=== PATIENT | female | born 2005 | race Caucasian/White ===

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

== ENCOUNTER → 2023-01-31 10:18 | Outpatient (BNVA) | payer BC, MEDICAID, SELFPAY | PROVIDERS: PCP Family Medicine; Referring Provider Family Medicine; Visit Provider Orthopaedic Surgery | DX: M51.36 Other intervertebral disc degeneration, lumbar region (principal) | CPT/HCPCS: 72110 ==

== ENCOUNTER 2023-02-21 13:18 | Outpatient (CLI) | payer BC, MEDICAID, SELFPAY ==
--- NOTE | 2023-02-21 13:30 | MR_ITS ---
WS: [id number] MRI LUMBAR SPINE NONCONTRAST HISTORY: back pain, lower back pain with radiculopathy COMPARISON: 08/11/2020 TECHNIQUE: Sagittal and axial multisequence imaging is submitted. Normal lumbar alignment with no compression fractures or marrow edema. Disc spaces and vertebral body heights are well-preserved. Conus terminates normally at L1-2 disc level. Conus terminates at the mid L2 level which is low dereje l. The conus tapers normally. No thickening of the filum terminale. L1-L2: Normal. L2-L3: Minimal disc bulging. Very mild facet arthritis. L3-L4: Mild ligamentum flavum and facet arthritis. Small central disc protrusion similar to the prior study. There may be very minimal encroachment upon the traversing L4 nerve roots. L4-L5: Mild annular disc bulge with a central shallow disc protrusion and fissure. Bilateral facet bill int arthritis with mild progression since the prior study. Mild encroachment upon the subarticular re cesses. Small amount of fluid in the LEFT facet joint. Mild foraminal narrowing. L5-S1: Normal. MR/MR lumbar spine wo con* [id number] IMPRESSION: 1. Central disc protrusion at L3-4 with mild encroachment upon the traversing L4 nerve roots. Similar to the prior study. 2. Mild progression of facet joint arthritis at L4-5. 3. Mild disc encroachment into the subarticular recesses at L4-5 and a small a mount of fluid in the LEFT facet joint. Mild foraminal narrowing. 4. No acute fracture.
--- NOTE | 2023-02-21 14:15 | MR_ITS ---
WS: [id number] MRI THORACIC SPINE noncontrast. HISTORY: mid back pain COMPARISON: 06/09/2020 TECHNIQUE: Multiplanar sequences are performed in sagittal and axial planes. Normal thoracic alignment. No marrow edema or acute compression fractures. No central stenosis. Sandra l cord signal. There are several Schmorl's nodes defects beginning at T6-T9, T11, T12, L1 and L2. Niya y similar to the prior study. No loss of vertebral body height. T1-2: Normal. T2-3: Normal. T3-4: Normal. T4-5: Normal. T5-6: Normal. T6-7: Normal. T7-8: Very tiny central disc protrusion without cord contact. Very mild foraminal arthritis. T8-9: Shallow RIGHT paracentral disc protrusion. Mild bilateral facet arthritis, RIGHT greater than LEFT. T9-10: Bilateral facet joint arthritis. T10-11: Normal. T11-12: Normal. Paravertebral soft tissues are normal. MR/MR thoracic spin wo con* [id number] IMPRESSION: 1. No high-grade central stenosis. 2. No marrow edema or fracture. 3. Small central disc protrusion at T7-8 and shallow RIGHT paracentral disc pr otrusion at T8-9. 4. Mild facet joint arthritis at T7-8 through T9-10. 5. Schmorl's nodes as described above are stable.
--- NOTE | 2023-02-21 15:00 | MR_ITS ---
WS: [id number] MRI CERVICAL SPINE NONCONTRAST HISTORY: neck pain with radiculopathy COMPARISON: None available. Technique: Multiplanar, multisequence noncontrast imaging of the cervical spine. Normal cervical alignment with no compression fracture or significant disc space narrowing. Remnant s ynchondrosis at the base of the odontoid process is a normal variant. There is no marrow edema to sug gest this is an acute fracture or prevertebral edema. No history of trauma. No Chiari malformation. Signal within the cervical cord is normal. Visualized posterior fossa is unremarkable. Craniocervical junction, C1 and C2 relationship, odontoid process and soft tissues are normal. C2-C3: Normal. C3-C4: Normal. C4-C5: Normal. C5-C6: Normal. C6-C7: Normal. C7-T1: Normal. Paraspinal soft tissue are normal. MR/MR cervical spin wo con* [id number] IMPRESSION: Normal MRI C-spine.
== END 2023-02-21 13:19 | disposition home or self-care (01) ==
PROVIDERS: PCP Family Medicine; Visit Provider Orthopaedic Surgery
DX: M51.24 Other intervertebral disc displacement, thoracic region (principal); G89.29 Other chronic pain; M54.12 Radiculopathy, cervical region; M47.814 Spondylosis without myelopathy or radiculopathy, thoracic region; M51.44 Schmorl's nodes, thoracic region; M51.26 Other intervertebral disc displacement, lumbar region; M47.26 Other spondylosis with radiculopathy, lumbar region
CPT/HCPCS: 72141; 72146; 72148

== ENCOUNTER → 2023-03-28 10:39 | Outpatient (BNVA) | payer BC, MEDICAID, SELFPAY | PROVIDERS: PCP Family Medicine; Referring Provider Orthopaedic Surgery; Visit Provider Internal Medicine Rheumatology | DX: M19.90 Unspecified osteoarthritis, unspecified site (principal); Z79.899 Other long term (current) drug therapy | CPT/HCPCS: 36415; 80076; 82565; 85025; 86140 ==

== ENCOUNTER 2023-04-16 20:04 | Emergency (ER) | payer BC, MEDICAID, SELFPAY ==
[2023-04-16 20:33] VITALS: BP 136/82; PULSE 100; RESP 16; TEMP 36.9; O2SAT 100; BMI 28.8
--- NOTE | 2023-04-16 21:09 | ED_ITS ---
HPI - Female Genitourinary General: Chief complaint: Urogenital-Female Stated complaint: abdomen pain Time Seen by Provider: 04/16/23 21:01 History of Present Illness: 17-year-old female comes in today with some urinary discomfort, pelvic pressure, and blood when she wipes after urinating. Patient appears nontoxic. Patient appears in no acute distress. Patient reports symptoms have been going on for about 2 weeks but after noticing the blood when she wiped tonight she became c oncerned and came in for evaluation. Patient reports a urinary discomfort since starting methotrexate and prednisone for her arthralgia and fibromyalgia. Patient has also been placed on propanolol recently for recurrent migraines. 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 Surgical History History of lymph node excision Infected lymph node on the right side of the neck Family History Father Hypertension Hyperlipidemia Grandmother Hypertension Paternal Hyperlipidemia Paternal Diabetes Paternal Cervical cancer Maternal Grandfather Hypertension Paternal Hyperlipidemia Paternal Stroke Paternal Diabetes Paternal Denies family history of Colon cancer Ovarian cancer DVT (deep venous thrombosis) Breast cancer Pulmonary embolism Uterine cancer Social History Smoking and tobacco status: never smoked Alcohol intake: never Substance/Drug Use: never Female Reproductive History: Spontaneous abortions: No Physical Exam Const: COMMON NORMALS: alert HENMT: COMMON NORMALS: normocephalic HEAD & SCALP: normocephalic Neck/C-Spine: COMMON NORMALS: full ROM Resp: COMMON NORMALS: normal respiratory effort and clear to auscultation bilaterally AUSCULTATION: clear to auscultation bilaterally Cardio: COMMON NORMALS: regular rate and regular rhythm RATE: regular rate RHYTHM: regular rhythm GI: COMMON NORMALS: non-tender : COMMON NORMALS: Yes no CVA tenderness BLADDER/KIDNEY EXAM: Yes no CVA tenderness Back/Pelvis: COMMON NORMALS: no CVA tenderness Extremity: COMMON NORMALS: full ROM Neuro: SENSORIUM/ORIENTATION: Yes alert Skin: COMMON NORMALS: turgor normal GENERAL SKIN EXAM: turgor normal Course Vital Signs: Vital signs: Vital Signs Temperature 98.5 F 04/16/23 20:33 Pulse Rate 100 04/16/23 20:33 Respiratory Rate 16 04/16/23 20:33 Blood Pressure 136/82 04/16/23 20:33 Pulse Oximetry 100 04/16/23 20:33 Oxygen Delivery Me thod Room Air 04/16/23 20:33 MDM - Female Medical Decision Making Patient comes in today with dysuria and pelvic pressure. Patient thinks that she might be developing a urinary tract infection. On exam patient has a soft abdomen, no CVA tenderness, mild pelvic discomfort deep palpation. Differential diagnosis includes but not limited to urinary tract infection, adverse drug effect, acute kidney injury. CBC and CMP were unremarkable. Urinalysis had a large amount of white blood cells and red blood cells in the urine. Patient was written a prescription for antibiotic cephalexin 500 twice a day for 7 days. Patient was recommended to have urine rechecked in 3 to 5 days, return to the ER for worsening symptoms. Patient reported understanding and agreed to plan. Lab Data 04/16/23 21:33 04/16/23 21:33 Laboratory Results WBC 12.3 10^3/uL (4.5-13.0) 04/16/23 21: RBC 4.41 10^6/uL (4.1-5.3) 04/16/23 21: Hgb 10.3 g/dL (11.5-15.3) L 04/16/23 21: Hct 33.3 % (37.0-47.0) L 04/16/23 21: MCV 75.5 fl (81-99) L 04/16/23 21: MCH 23.4 pg (28.0-34.0) L 04/16/23 21: MCHC 30.9 g/dL (30.0-36.0) 04/16/23 21: RDW 15.1 % (12.1-15.1) 04/16/23 21: Plt Count 228 10^3/cmm (130-400) 04/16/23 21: MPV 10.4 fL (7.4-10.4) 04/16/23 21: Neut % (Auto) 68.1 % 04/16/23 21:33 Lymph % (Auto) 22.3 % 04/16/23 21: [place] % (Auto) 7.6 % 04/16/23 21: Eos % (Auto) 1.0 % 04/16/23 21: Baso % (Auto) 0.5 % 04/16/23 21: Neut # (Auto) 8.38 10^3/uL (1.8-8.0) H 04/16/23 21: Lymph # (Auto) 2.7 10^3/uL (1.5-6.5) 04/16/23 21: [place] # (Auto) 0.9 10^3/uL (0.2-0.9) 04/16/23 21: Eos # (Auto) 0.1 10^3/uL (0.0-0.8) 04/16/23 21: Baso # (Auto) 0.1 10^3/uL (0.0-0.1) 04/16/23 21: Nucleated RBC % (auto) 0 % 04/16/23 21: Nucleated RBCs # 0.0 /100WBC 04/16/23 21:33 Sodium 140 mmol/L (136-145) 04/16/23 21: Potassium 3.7 mmol/L (3.5-5.1) 04/16/23 21: Chloride 104 mmol/L (98-107) 04/16/23 21: Carbon Dioxide 25 mmol/L (22-29) 04/16/23 21: Anion Gap 14.7 (5-19) 04/16/23 21: BUN 7 mg/dL (6-20) 04/16/23 21: Creatinine 0.8 mg/dL (0.5-0.9) 04/16/23 21:33 GFR Calculation 92.4 mL/min (90-130) 04/16/23 21: Glucose 111 mg/dL (65-115) 04/16/23 21:33 Calculated Osmolality 289 mOsm/kg (285-295) 04/16/23 21:33 Calcium 9.1 mg/dL (8.5-10.5) 04/16/23 21:33 HCG, Qual Negative (Negative) 04/16/23 21:02 Urine Color Yellow (Yellow) 04/16/23 21:02 Urine Appearance Cloudy (CLEAR) A 04/16/23 21:02 Urine pH 6.5 (5-7) 04/16/23 21:02 Ur Specific [place] 1.020 (1.005-1.030) 04/16/23 21:02 Urine Protein 3+ (Negative) H 04/16/23 21:02 Urine Glucose (UA) Norm (Normal) 04/16/23 21:02 Urine Ketones Negative (Negative) 04/16/23 21:02 Urine Blood 3+ (Negative) H 04/16/23 21:02 Urine Nitrate Negative (Negative) 04/16/23 21:02 Urine Bilirubin 1+ (Negative) H 04/16/23 21:02 Urine Urobilinogen Norm mg/dL (Negative) 04/16/23 21:02 Ur Leukocyte Esterase 2+ (Negative) H 04/16/23 21:02 Urine RBC Too numerous to cnt /hpf (0-2) H 04/16/23 21:02 Urine WBC Too numerous to cnt /hpf (0-5) H 04/16/23 21:02 Ur Squamous Epith Cells 0-4 /hpf (0-5) H 04/16/23 21:02 Amorphous Sediment Not Reportable 04/16/23 21:02 Urine Bacteria 2+ /hpf (NONE) H 04/16/23 21:02 Discharge Plan Discharge Patient Disposition: Home Clinical Impression: Cystitis Condition: Stable Prescriptions: New cephalexin 500 mg capsule 500 mg PO BID 7 Days Qty: 14 0RF No Action etonogestrel-ethinyl estradiol [NuvaRing] 0.12-0.015 mg/24 hr ring 1 vag ring vaginal ONCE Qty: 3 3RF Rx Instructions: Leave in for 3 weeks, then remove for 1 week. propranolol 20 mg tablet 20 mg PO BID Qty: 60 2RF methotrexate sodium 2.5 mg tablet See Rx Instructions PO .Q7days Qty: 30 3RF Rx Instructions: take 6 tabs on same day once a week PO .Q7days; folic acid 1 mg tablet 1 mg PO DAILY Qty: 30 3RF prednisone 20 mg tablet See Rx Instructions PO .COMPLEX PRN (Reason: joint pain flare) Qty: 30 0RF Rx Instructions: take 2 tab daily for [address] Knox PO PRN; Discharge Orders: Discharge ED (Routine); Ordered 04/16/23 Ordered By: Sage Skelton Referrals: Asher Ordonez DO [Primary Care Provider] - Discharge Diet: Usual diet Discharge Activity: Increase activity as tolerated Patient Instructions: Urinary Tract Infection in Women (ED) Activity Restrictions/Additional Instructions: Take antibiotic as directed. Drink plenty of water and fluids with medication. Follow-up with primary care in 3 to 5 days for recheck of urine. Return to ER for worsening symptoms such as high fever greater than 100.4, inability to hold fluids down, or new concerns. Coding Level of Care Code ED Trauma Counsellor for Shyam Daley
[2023-04-16 21:30] LABS: HCG Qualitative Urine. Negative (Negative)
[2023-04-16 21:33] LABS: Add Urine Microscopic? YES; Bilirubin Urine 1+ (Negative); Blood Urine 3+ (Negative); Glucose Urine UA Norm (Normal); Ketones Urine Negative (Negative); Leukocyte Esterase Urine 2+ (Negative); Nitrate Urine Negative (Negative); Protein Urine 3+ (Negative); Urine Appearance Cloudy (CLEAR); Urine Color Yellow (Yellow); Urobilinogen Urine Norm (Negative); pH Urine 6.5 (5-7)
[2023-04-16 21:36] LABS: Bacteria Urine 2+ /hpf; RBC Urine TOO NUMEROUS TO CNT /hpf (0-2); Squamous Epithelial Cell Urine 0-4 /hpf (0-5); WBC Urine TOO NUMEROUS TO CNT /hpf (0-5)
[2023-04-16 21:37] LABS: Add Urine Culture? Yes
[2023-04-16 21:41] LABS: Basophils # 0.1 10^3/uL (0.0-0.1); Basophils % 0.5 %; Eosinophils # 0.1 10^3/uL (0.0-0.8); Hematocrit 33.3 % (37.0-47.0); Hemoglobin 10.3 g/dL (11.5-15.3); Lymphocytes # 2.7 10^3/uL (1.5-6.5); Lymphocytes % 22.3 %; Mean Corpuscular HGB Conc 30.9 g/dL (30.0-36.0); Mean Corpuscular Hemoglobin 23.4 pg (28.0-34.0); Mean Corpuscular Volume 75.5 fl (81-99); Mean Platelet Volume 10.4 fL (7.4-10.4); Monocytes # 0.9 10^3/uL (0.2-0.9); Monocytes % 7.6 %; Neutrophils # 8.38 10^3/uL (1.8-8.0); Neutrophils % 68.1 %; Nucleated Red Blood Cells % 0 %; Platelet Count 228 10^3/cmm (130-400); Red Blood Count 4.41 10^6/uL (4.1-5.3); Red Cell Distribution Width 15.1 % (12.1-15.1); White Blood Count 12.3 10^3/uL (4.5-13.0)
[2023-04-16] MEDS: cephALEXin 500 mg Capsule PO (21:42)
[2023-04-16 21:57] LABS: Anion Gap 14.7 (5-19); Blood Urea Nitrogen 7 mg/dL (6-20); Calcium 9.1 mg/dL (8.5-10.5); Carbon Dioxide 25 mmol/L (22-29); Chloride 104 mmol/L (98-107); Creatinine Clr Calc Pharmacy 130.0145; Glomerular Filtration Rate 92.4 mL/min (90-130); Glucose 111 mg/dL (65-115); Osmolality Calculated 289 mOsm/kg (285-295); Potassium 3.7 mmol/L (3.5-5.1); Sodium 140 mmol/L (136-145)
== END 2023-04-16 22:22 | disposition home or self-care (01) ==
PROVIDERS: Emergency Provider Nurse Practitioner Family; PCP Family Medicine
DX: N30.90 Cystitis, unspecified without hematuria (principal)
CPT/HCPCS: 36415; 80048; 81001; 81025; 85025; 87077; 87086; 87186; 99283

== ENCOUNTER 2023-04-24 23:38 | Emergency (ER) | payer BC, MEDICAID, SELFPAY ==
[2023-04-24 23:43] VITALS: BP 132/87; PULSE 89; RESP 18; TEMP 36.7; O2SAT 98; BMI 28.8
[2023-04-24 23:47] VITALS: BP 152/87; PULSE 90; RESP 16
--- NOTE | 2023-04-25 00:25 | W.ED.FEMALGU ---
HPI - Female Genitourinary General: Chief complaint: Urogenital-Female Stated complaint: vaginal pain Time Seen by Provider: 04/25/23 00:02 History of Present Illness: 17yo female presents with friend for evaluation of redness, swelling, tenderness, burning, and itching to the vaginal area that started 4 days ago. Patient reports she was seen in this ER a little over a week ago, diagnosed with a urinary tract infection. States that she thought it may be related to the antibiotic, so she stopped taking it. Patient reports that she did try using Monistat today, but it caused increased burning. Patient denies rash, lesions, possibility of , fever, chills, body aches, any other concerns at this time. 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 Surgical History History of lymph node excision Infected lymph node on the right side of the neck Family History Father Hypertension Hyperlipidemia Grandmother Hypertension Paternal Hyperlipidemia Paternal Diabetes Paternal Cervical cancer Maternal Grandfather Hypertension Paternal Hyperlipidemia Paternal Stroke Paternal Diabetes Paternal Denies family history of Colon cancer Ovarian cancer DVT (deep venous thrombosis) Breast cancer Pulmonary embolism Uterine cancer Social History Smoking and tobacco status: never smoked Alcohol intake: never Substance/Drug Use: never Female Reproductive History: Spontaneous abortions: No Physical Exam Const: COMMON NORMALS: no acute distress, patient oriented x3, healthy appearing, alert and well nourished GENERAL APPEARANCE: cooperative ORIENTATION/CONSCIOUSNESS: Yes awake HENMT: COMMON NORMALS: normocephalic and atraumatic HEAD & SCALP: normocephalic and atraumatic Eye: GENERAL EYE: appearance normal, both eyes and all related structures Neck/C-Spine: COMMON NORMALS: full ROM Chest: CHEST: Yes Symmetrical chest wall rise Resp: COMMON NORMALS: normal respiratory effort EFFORT & INSPECTION: No respiratory distress Cardio: COMMON NORMALS: regular rate RATE: regular rate : EXTERNAL FEMALE EXAM: Yes normal appearance of the urethra, No Abnormal introitus, Yes erythema (scant), No externally tender and No external swelling Neuro: COMMON NORMALS: patient oriented x3 SENSORIUM/ORIENTATION: Yes alert Psych: COMMON NORMALS: cooperative Course Vital Signs: Vital signs: Vital Signs Temperature 98.0 F 04/24/23 23:43 Pulse Rate 90 04/24/23 23:47 Respiratory Rate 16 04/24/23 23:47 Blood Pressure 152/87 04/24/23 23:47 Pulse Oximetry 98 04/24/23 23:43 Oxygen Delivery Me thod Room Air 04/24/23 23:43 MDM - Female Medical Decision Making 17yo female here with concerns of redness, swelling, tenderness, burning, itching to the vaginal area that started 4 days ago. Patient was seen at this ER on 04/16/2023 where she was diagnosed with a urinary tract infection and diagnosed cephalexin. She reports that she stopped taking the medication when she started having the symptoms. Reports that she tried Monistat today, but had increased burning to the area. Patient denies fever, chills, body aches, rash/genital lesions, continued dysuria, possibility of . Patient is nontoxic in appearance. Vital signs are stable. Differential diagnoses include UTI, yeast infection, genital lesions UA with 2+ leukocytes and 5-10 white blood cells, trace bacteria noted. Discussed findings with patient. Advised that we would begin nitrofurantoin given that the patient did stop her previously prescribed antibiotics prior to completing the course. Diflucan was also prescribed. Encourage patient to increase her fluid intake and continue to monitor symptoms. Advised to follow-up with primary care, call later this week with an update of symptoms and to discuss a recheck. Recommend return to the emergency department if any rapid worsening symptoms, onset of fever/chills associated with worsening, and as needed Lab Data I reviewed the patient's lab results. Laboratory Results Urine Color Yellow (Yellow) 04/25/23 00:21 Urine Appearance Sl hazy (CLEAR) A 04/25/23 00:21 Urine pH 5 (5-7) 04/25/23 00:21 Ur Specific [place] 1.025 (1.005-1.030) 04/25/23 00:21 Urine Protein Neg (Negative) 04/25/23 00:21 Urine Glucose (UA) Norm (Normal) 04/25/23 00:21 Urine Ketones Negative (Negative) 04/25/23 00:21 Urine Blood Neg (Negative) 04/25/23 00:21 Urine Nitrate Negative (Negative) 04/25/23 00:21 Urine Bilirubin Neg (Negative) 04/25/23 00:21 Urine Urobilinogen Norm mg/dL (Negative) 04/25/23 00:21 Ur Leukocyte Esterase 2+ (Negative) H 04/25/23 00:21 Urine RBC 0-4 /hpf (0-2) H 04/25/23 00:21 Urine WBC 5-10 /hpf (0-5) H 04/25/23 00:21 Ur Squamous Epith Cells 5-10 /hpf (0-5) H 04/25/23 00:21 Amorphous Sediment Not Reportable 04/25/23 00:21 Urine Bacteria Trace /hpf (NONE) 04/25/23 00:21 Discharge Plan Discharge Patient Disposition: Home Clinical Impression: Urinary tract infection, Genital pruritus Condition: Stable Prescriptions: New Macrobid 100 mg capsule 100 mg PO BID 5 Days Qty: 10 0RF Rx Instructions: must administer with a meal/food Diflucan 150 mg tablet 150 mg PO DAILY Qty: 1 0RF Rx Instructions: administer on day 3 of antibiotics No Action etonogestrel-ethinyl estradiol [NuvaRing] 0.12-0.015 mg/24 hr ring 1 vag ring vaginal ONCE Qty: 3 3RF Rx Instructions: Leave in for 3 weeks, then remove for 1 week. propranolol 20 mg tablet 20 mg PO BID Qty: 60 2RF methotrexate sodium 2.5 mg tablet See Rx Instructions PO .Q7days Qty: 30 3RF Rx Instructions: take 6 tabs on same day once a week PO .Q7days; folic acid 1 mg tablet 1 mg PO DAILY Qty: 30 3RF prednisone 20 mg tablet See Rx Instructions PO .COMPLEX PRN (Reason: joint pain flare) Qty: 30 0RF Rx Instructions: take 2 tab daily for [address] Lisette FRENCH PRN; Discharge Orders: Discharge ED (Routine); Ordered 04/25/23 Ordered By: Ezra Busch Referrals: Asher Ordonez DO [Primary Care Provider] - Discharge Diet: Usual diet Discharge Activity: Resume usual activity Patient Instructions: Urinary Tract Infection in Women (ED) Activity Restrictions/Additional Instructions: Increase your fluid intake and continue to monitor symptoms Follow-up with your doctor, call later this week with an update of symptoms and to discuss or recheck Return to the emergency department if any rapid worsening symptoms and as needed Coding Level of Care Code ED Soil Science Professor for Shyam Daley
[2023-04-25 00:37] LABS: Urine Color Yellow (Yellow)
[2023-04-25 00:38] LABS: Add Urine Culture? No; Add Urine Microscopic? YES; Bacteria Urine TRACE /hpf; Bilirubin Urine Neg (Negative); Blood Urine Neg (Negative); Glucose Urine UA Norm (Normal); Ketones Urine Negative (Negative); Leukocyte Esterase Urine 2+ (Negative); Nitrate Urine Negative (Negative); Protein Urine Neg (Negative); RBC Urine 0-4 /hpf (0-2); Specific Gravity, Urine 1.025 (1.005-1.030); Urine Appearance SL Hazy (CLEAR); Urobilinogen Urine Norm (Negative); pH Urine 5 (5-7)
[2023-04-25] MEDS: nitrofurantoin SR (BID) 100 mg Capsule PO (01:11)
[2023-04-25 01:26] VITALS: PULSE 72; RESP 16; O2SAT 99
== END 2023-04-25 01:26 | disposition home or self-care (01) ==
PROVIDERS: Nurse Practitioner; Emergency Provider Internal Medicine; PCP Family Medicine
DX: L29.2 Pruritus vulvae (principal); N39.0 Urinary tract infection, site not specified
CPT/HCPCS: 81001; 99283

== ENCOUNTER 2024-11-29 17:47 | Emergency (ER) | payer SELFPAY ==
[2024-11-29 18:08] VITALS: BP 120/80; PULSE 101; RESP 18; TEMP 37.1; O2SAT 100; BMI 32.5
--- NOTE | 2024-11-29 19:12 | W.ED.SKABFB ---
HPI - Skin/Abscess/Foreign Bdy General: Chief complaint: Skin/Abscess/Foreign Body Stated complaint: discoloration around breasts Time Seen by Provider: 11/29/24 18:14 History of Present Illness: Marcia Boothe is a 19-year-old female that presents to the emergency department with reports of breast discoloration. Patient reports that last night while cleaning out a drawer she noted purpleish skin tone to her breast It was under her clothing, under her bra. She googled the symptoms along with her other symptoms she has had for the last 3 months, epigastric pain, nausea vomiting and is now concerned that she may have pancreatic cancer. She does have a familial history breast cancer. Does not do breast exams. Has not had any issues with her breast. She does not feel that her breasts have changed in any particular manner. Related Data Previous Rx's ?Medication ?Instructions ?Recorded ondansetron 4 mg disintegrating 4 mg PO Q8H PRN nausea and 09/10/24 tablet vomiting #14 tabs Allergies Allergy/AdvReac Type Severity Reaction Status Date / Time tioconazole (From Monistat 1 Allergy ALGY-Rash Verified 09/10/24 15:12 (tioconazole)) duloxetine AdvReac Intermediate nausea Verified 09/10/24 15:12 Review of Systems General: Reports: 10 or more systems reviewed and unremarkable except in HPI and below Narrative: She reports breast discoloration and feeling of fullness. Denies tenderness. Pain in the epigastrium. 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 Osorio Surgical History History of lymph node excision Infected lymph node on the right side of the neck Family History Father Hypertension Hyperlipidemia Grandmother Hypertension Paternal Hyperlipidemia Paternal Diabetes Paternal Cervical cancer Maternal Grandfather Hypertension Paternal Hyperlipidemia Paternal Stroke Paternal Diabetes Paternal Denies family history of Colon cancer Ovarian cancer DVT (deep venous thrombosis) Breast cancer Pulmonary embolism Uterine cancer Social History (Updated 08/08/23 @ 10:54 by Bindu Maldonado LPN) Smoking and tobacco/nicotine status: never used tobacco/nicotine Female Reproductive History: Spontaneous abortions: No Physical Exam Const: COMMON NORMALS: no acute distress, patient oriented x3 and alert GENERAL APPEARANCE: cooperative ORIENTATION/CONSCIOUSNESS: Yes awake, Yes oriented to person, Yes oriented to place and Yes oriented to time Chest: COMMONS NORMALS: normal inspection of the chest Breast/axilla inspection: Yes no chest deformity, asymmetry, normal contours, no nodules, masses, tenderness Resp: COMMON NORMALS: normal respiratory effort, No retractions, No use of accessory muscles and clear to auscultation bilaterally EFFORT & INSPECTION: Yes able to speak in complete sentences and Yes symmetric chest movement AUSCULTATION: clear to auscultation bilaterally Cardio: COMMON NORMALS: regular rate, regular rhythm and Peripheral pulses 2+ throughout RATE: regular rate RHYTHM: regular rhythm PERIPHERAL PULSES: Peripheral pulses 2+ throughout GI: COMMON NORMALS: Normal to inspection, nondistended, normoactive bowel sounds present, Soft to palpation, non-tender and No hepatosplenomegaly present INSPECTION: Yes normal to inspection AUSCULTATION: Yes normoactive bowel sounds PALPATION: Yes Soft to palpation and Yes No hepatosplenomegaly present RECTAL EXAM: deferred Neuro: COMMON NORMALS: patient oriented x3 SENSORIUM/ORIENTATION: Yes alert, Yes oriented to person, Yes oriented to place and Yes oriented to time CRANIAL NERVES: Yes CN normal except as noted Psych: COMMON NORMALS: mental status grossly normal, Normal thought process present, cooperative, activity/motor behavior normal, denies homicidal ideation and denies suicidal ideation THOUGHT PROCESS: Normal thought process present Skin: COMMON NORMALS: no rashes or lesions noted, no wounds and turgor normal GENERAL SKIN EXAM: no rashes or lesions noted and turgor normal Course Vital Signs: Vital signs: Vital Signs Temperature 98.8 F 11/29/24 18:08 Pulse Rate 101 H 11/29/24 18:08 Respiratory Rate 18 11/29/24 18:08 Blood Pressure 120/80 11/29/24 18:08 Pulse Oximetry 100 11/29/24 18:08 Oxygen Delivery Me thod Room Air 11/29/24 18:08 MDM - Skin/Abscess/Foreign Bdy Medicial Decision Making Patient evaluated in the emergency department today for complaints of intermittent epigastric pain for the last 3 months along with nausea vomiting poor appetite. The initial reason for visit today was changes to her breast. [place] like she had a rash yesterday. No rash visualized today Patient has not had a menstrual cycle since February 2024 but she reports that this is not uncommon for her since she has PCOS. She is sexually active and does not use any means of prevention. She had a positive hCG qualitative and her quantitative was almost 24,000. Her CBC reveals a mild anemia but no leukocytosis. Her chemistry panel was unremarkable. Her lipase was normal. I talked with patient about diagnostic findings. I am reaching out to special education case manager to assist with primary care and SENIOR PAYROLL SPECIALIST referrals. Patient should return to the emergency department if she develops abdominal pain, vaginal bleeding or any other concern that may be worsening. Patient is agreeable and all questions answered Lab Data 11/29/24 19:40 11/29/24 19:40 Laboratory Results WBC 10.74 10^3/uL (3.29-11.43) 11/29/24 19:40 RBC 4.50 10^6/uL (3.85-5.65) 11/29/24 19:40 Hgb 10.10 g/dL (11.27-16.99) L 11/29/24 19:40 Hct 32.6 % (36-47) L 11/29/24 19:40 MCV 72.4 fl (85-98) L 11/29/24 19:40 MCH 22.4 pg (27-33) L 11/29/24 19:40 MCHC 31.0 g/dL (30-55) 11/29/24 19:40 RDW 17.6 % (12.1-15.1) H 11/29/24 19:40 Plt Count 230 10^3/cmm (157-399) 11/29/24 19:40 MPV 11.7 fL (7.4-10.4) H 11/29/24 19:40 Neut % (Auto) 73.6 % 11/29/24 19:40 Lymph % (Auto) 17.5 % 11/29/24 19:40 [place] % (Auto) 7.3 % 11/29/24 19:40 Eos % (Auto) 0.6 % 11/29/24 19:40 Baso % (Auto) 0.3 % 11/29/24 19:40 Neut # (Auto) 7.92 10^3/uL (1.8-7.7) H 11/29/24 19:40 Lymph # (Auto) 1.9 10^3/uL (0.8-4.8) 11/29/24 19:40 [place] # (Auto) 0.8 10^3/uL (0.2-0.9) 11/29/24 19:40 Eos # (Auto) 0.1 10^3/uL (0.0-0.8) 11/29/24 19:40 Baso # (Auto) 0.0 10^3/uL (0.0-0.1) 11/29/24 19:40 Nucleated RBC % (auto) 0 % 11/29/24 19:40 Nucleated RBCs # 0.0 /100WBC 11/29/24 19:40 Sodium 136 mmol/L (136-145) 11/29/24 19:40 Potassium 3.6 mmol/L (3.5-5.1) 11/29/24 19:40 Chloride 103 mmol/L (98-107) 11/29/24 19:40 Carbon Dioxide 23 mmol/L (22-29) 11/29/24 19:40 Anion Gap 13.6 (5-19) 11/29/24 19:40 BUN 6 mg/dL (6-20) 11/29/24 19:40 Creatinine 0.5 mg/dL (0.5-0.9) 11/29/24 19:40 GFR Calculation 155.7 mL/min (90-130) H 11/29/24 19:40 Glucose 80 mg/dL (65-115) 11/29/24 19:40 Calculated Osmolality 279 mOsm/kg (285-295) L 11/29/24 19:40 Calcium 8.8 mg/dL (8.5-10.5) 11/29/24 19:40 Total Bilirubin 0.2 mg/dL (0.15-1.2) 11/29/24 19:40 AST 16 U/L (0-32) 11/29/24 19:40 ALT 17 U/L (0-33) 11/29/24 19:40 Alkaline Phosphatase 72 U/L (35-105) 11/29/24 19:40 Total Protein 6.1 g/dL (6.6-8.7) L 11/29/24 19:40 Albumin 3.8 g/dL (3.5-5.2) 11/29/24 19:40 Globulin 2.3 g/dL (1.3-4.6) 11/29/24 19:40 Lipase 32 U/L (13-60) 11/29/24 19:40 HCG, Qual Positive (Negative) H 11/29/24 19:08 Ser , Semi-Qnt 39938.00 mIU/mL 11/29/24 19:40 Urine Color Yellow (Yellow) 11/29/24 19:08 Urine Appearance Clear (CLEAR) 11/29/24 19:08 Urine pH 6.0 (5-7) 11/29/24 19:08 Ur Specific [place] 1.010 (1.005-1.030) 11/29/24 19:08 Urine Protein Negative (Negative) 11/29/24 19:08 Urine Glucose (UA) Negative (Normal) 11/29/24 19:08 Urine Ketones Negative (Negative) 11/29/24 19:08 Urine Blood Negative (Negative) 11/29/24 19:08 Urine Nitrate Negative (Negative) 11/29/24 19:08 Urine Bilirubin Negative (Negative) 11/29/24 19:08 Urine Urobilinogen 1.0 mg/dL (Negative) 11/29/24 19:08 Ur Leukocyte Esterase Negative (Negative) 11/29/24 19:08 Urine RBC 0-2 /hpf (0-2) 11/29/24 19:08 Urine WBC 0-5 /hpf (0-5) 11/29/24 19:08 Ur Squamous Epith Cells 0-5 /hpf (0-5) 11/29/24 19:08 Amorphous Sediment Not Reportable 11/29/24 19:08 Urine Bacteria None seen /hpf (NONE) 11/29/24 19:08 Hyaline Casts 0.40 /lpf 11/29/24 19:08 No radiology studies performed this visit Discharge Plan Discharge Patient Disposition: Home Clinical Impression: , Breast tenderness in female Condition: Stable Prescriptions: No Action ondansetron 4 mg tablet,disintegrating 4 mg PO Q8H PRN (Reason: nausea and vomiting) Qty: 14 0RF Discharge Orders: Discharge ED (Routine); Ordered 11/29/24 Ordered By: Vane Palacios Referrals: Asher Ordonez DO [Primary Care Provider] - Discharge Diet: Advance as tolerated Discharge Activity: Resume usual activity Patient Instructions: (ED), Pain Management Activity Restrictions/Additional Instructions: I have asked special education case manager to assist you in setting up primary care as well as SENIOR PAYROLL SPECIALIST. Please expect their call this week. Please return to the emergency department for new, concerning, or worsening symptoms Print Language: Burkinan Coding Level of Care Code ED Anode Crew Supervisor for Shyam Daley
[2024-11-29 19:14] LABS: HCG Qualitative Urine. Positive (Negative)
[2024-11-29 19:15] LABS: Bilirubin Urine Negative (Negative); Blood Urine Negative (Negative); Glucose Urine UA Negative (Normal); Ketones Urine Negative (Negative); Leukocyte Esterase Urine Negative (Negative); Nitrate Urine Negative (Negative); Protein Urine Negative (Negative); Urine Appearance Clear (CLEAR); Urine Color Yellow (Yellow)
[2024-11-29 19:20] LABS: Add Urine Microscopic? YES; Bacteria Urine None Seen /hpf; RBC Urine 0-2 /hpf (0-2); Squamous Epithelial Cell Urine 0-5 /hpf (0-5); WBC Urine 0-5 /hpf (0-5)
[2024-11-29 20:04] LABS: Basophils % 0.3 %; Eosinophils # 0.1 10^3/uL (0.0-0.8); Eosinophils % 0.6 %; Hematocrit 32.6 % (36-47); Lymphocytes # 1.9 10^3/uL (0.8-4.8); Lymphocytes % 17.5 %; Mean Corpuscular Hemoglobin 22.4 pg (27-33); Mean Corpuscular Volume 72.4 fl (85-98); Mean Platelet Volume 11.7 fL (7.4-10.4); Monocytes # 0.8 10^3/uL (0.2-0.9); Monocytes % 7.3 %; Neutrophils # 7.92 10^3/uL (1.8-7.7); Neutrophils % 73.6 %; Nucleated Red Blood Cells % 0 %; Platelet Count 230 10^3/cmm (157-399); Red Cell Distribution Width 17.6 % (12.1-15.1); White Blood Count 10.74 10^3/uL (3.29-11.43)
[2024-11-29 20:14] LABS: Alanine Aminotransferase 17 U/L (0-33); Albumin Level 3.8 g/dL (3.5-5.2); Alkaline Phosphatase 72 U/L (35-105); Anion Gap 13.6 (5-19); Aspartate Amino Transferase 16 U/L (0-32); Blood Urea Nitrogen 6 mg/dL (6-20); Calcium 8.8 mg/dL (8.5-10.5); Carbon Dioxide 23 mmol/L (22-29); Chloride 103 mmol/L (98-107); Creatinine Clr Calc Pharmacy 216.8195; Globulin 2.3 g/dL (1.3-4.6); Glomerular Filtration Rate 155.7 mL/min (90-130); Glucose 80 mg/dL (65-115); Lipase 32 U/L (13-60); Osmolality Calculated 279 mOsm/kg (285-295); Potassium 3.6 mmol/L (3.5-5.1); Sodium 136 mmol/L (136-145); Total Bilirubin 0.2 mg/dL (0.15-1.2); Total Protein 6.1 g/dL (6.6-8.7)
[2024-11-29 20:43] VITALS: BP 107/56; PULSE 83; O2SAT 96
--- NOTE | 2024-12-02 07:46 | DCPLANNER ---
messaged [facility] f/u
== END 2024-11-29 20:48 | disposition home or self-care (01) ==
PROVIDERS: Emergency Provider Nurse Practitioner; PCP Family Medicine
DX: Z34.91 Encounter for supervision of normal pregnancy, unspecified, first trimester (principal); N64.4 Mastodynia
CPT/HCPCS: 36415; 80053; 81001; 81025; 83690; 84702; 85025; 99283

== ENCOUNTER → 2024-12-10 11:02 | Outpatient (BNVA) | payer BC, MEDICAID, SELFPAY | PROVIDERS: PCP Family Medicine; Visit Provider Nurse Practitioner Women's Health | DX: Z34.90 Encounter for supervision of normal pregnancy, unspecified, unspecified trimester (principal); N91.2 Amenorrhea, unspecified | CPT/HCPCS: 76815; 80307; 81025; 83036; 84702; 85025; 86592; 86762; 86803; 86850; 86900; 87086; 87340; 87806 ==

== ENCOUNTER → 2024-12-16 09:24 | Outpatient (BNVA) | payer BC, MEDICAID, SELFPAY | PROVIDERS: PCP Family Medicine; Visit Provider Nurse Practitioner Women's Health | DX: O26.892 Other specified pregnancy related conditions, second trimester (principal); Z3A.22 22 weeks gestation of pregnancy | CPT/HCPCS: 76805 ==

== ENCOUNTER → 2025-01-07 09:55 | Outpatient (BNVA) | payer BC, MEDICAID, SELFPAY | PROVIDERS: PCP Family Medicine; Visit Provider Nurse Practitioner Women's Health | DX: Z34.90 Encounter for supervision of normal pregnancy, unspecified, unspecified trimester (principal) | CPT/HCPCS: 82607; 82728; 82746; 82950; 83540; 84315; 84443; 87491; 87591; 87661; 88175 ==

== ENCOUNTER 2025-02-10 12:15 | Outpatient (CLI) | payer BC, MEDICAID, SELFPAY ==
[2025-02-10 12:25] VITALS: BP 139/85; PULSE 95
[2025-02-10 12:27] VITALS: RESP 16; TEMP 36.9; BMI 34.8
[2025-02-10 12:28] VITALS: RESP 16; TEMP 36.9
[2025-02-10 12:40] VITALS: BP 115/71; PULSE 83
[2025-02-10 12:55] VITALS: BP 118/70; PULSE 83
== END 2025-02-10 13:08 | disposition home or self-care (01) ==
LOC: OPOB 12:19 → OBGYN 12:19
PROVIDERS: PCP Family Medicine; Visit Provider Obstetrics & Gynecology
DX: O36.8190 Decreased fetal movements, unspecified trimester, not applicable or unspecified (principal); Z3A.00 Weeks of gestation of pregnancy not specified
CPT/HCPCS: 59025; 99211

== ENCOUNTER → 2025-02-12 13:17 | Outpatient (BNVA) | payer BC, MEDICAID, SELFPAY | PROVIDERS: PCP Family Medicine; Visit Provider Nurse Practitioner Women's Health | DX: Z34.90 Encounter for supervision of normal pregnancy, unspecified, unspecified trimester (principal); Z34.02 Encounter for supervision of normal first pregnancy, second trimester | CPT/HCPCS: 84315; 85025 ==

== ENCOUNTER → 2025-03-04 08:00 | Outpatient (BNVA) | payer BC, MEDICAID, SELFPAY | PROVIDERS: PCP Family Medicine; Visit Provider Nurse Practitioner Women's Health | DX: Z34.02 Encounter for supervision of normal first pregnancy, second trimester (principal) | CPT/HCPCS: 84315 ==

== ENCOUNTER → 2025-03-18 07:54 | Outpatient (BNVA) | payer BC, MEDICAID, SELFPAY | PROVIDERS: PCP Family Medicine; Visit Provider Nurse Practitioner Women's Health | DX: Z34.00 Encounter for supervision of normal first pregnancy, unspecified trimester (principal) | CPT/HCPCS: 84315 ==

== ENCOUNTER 2025-03-22 02:00 | Outpatient (CLI) | payer BC, MEDICAID, SELFPAY ==
[2025-03-22 02:13] VITALS: BMI 36.6
[2025-03-22 02:30] VITALS: BP 104/56; PULSE 78
[2025-03-22 02:45] VITALS: BP 97/54; PULSE 78
[2025-03-22 03:00] VITALS: BP 99/56; PULSE 84
[2025-03-22 03:15] VITALS: BP 97/52; PULSE 79
[2025-03-22 03:30] VITALS: BP 97/52; PULSE 87; RESP 15; TEMP 35.8; O2SAT 97
[2025-03-22 03:31] VITALS: PULSE 85; O2SAT 97
== END 2025-03-22 03:33 | disposition home or self-care (01) ==
LOC: OPOB 02:07 → OBGYN 02:07
PROVIDERS: PCP Family Medicine; Visit Provider Obstetrics & Gynecology
DX: O26.899 Other specified pregnancy related conditions, unspecified trimester (principal); Z3A.00 Weeks of gestation of pregnancy not specified; R52 Pain, unspecified
CPT/HCPCS: 59025; 99211; J9999

== ENCOUNTER → 2025-03-31 07:56 | Outpatient (BNVA) | payer BC, MEDICAID, SELFPAY | PROVIDERS: PCP Family Medicine; Visit Provider Obstetrics & Gynecology | DX: Z34.00 Encounter for supervision of normal first pregnancy, unspecified trimester (principal); Z34.02 Encounter for supervision of normal first pregnancy, second trimester | CPT/HCPCS: 84315; 87081 ==

== ENCOUNTER 2025-04-01 21:10 | Outpatient (CLI) | payer BC, MEDICAID, SELFPAY ==
[2025-04-01] VITALS (7 sets, daily range): BP systolic 107–127; BP diastolic 58–78; PULSE 97–122; BMI 36.8
== END 2025-04-01 22:46 | disposition home or self-care (01) ==
LOC: OPOB 21:14 → OBGYN 21:16
PROVIDERS: PCP Family Medicine; Visit Provider Obstetrics & Gynecology
DX: O26.899 Other specified pregnancy related conditions, unspecified trimester (principal); Z3A.00 Weeks of gestation of pregnancy not specified; R10.9 Unspecified abdominal pain
CPT/HCPCS: 59025; 99211

== ENCOUNTER → 2025-04-09 09:09 | Outpatient (BNVA) | payer BC, MEDICAID, SELFPAY | PROVIDERS: PCP Family Medicine; Visit Provider Obstetrics & Gynecology | DX: Z34.90 Encounter for supervision of normal pregnancy, unspecified, unspecified trimester (principal); Z3A.37 37 weeks gestation of pregnancy | CPT/HCPCS: 84315 ==

== ENCOUNTER → 2025-04-14 08:12 | Outpatient (BNVA) | payer BC, MEDICAID, SELFPAY | PROVIDERS: PCP Family Medicine; Visit Provider Obstetrics & Gynecology | DX: Z34.90 Encounter for supervision of normal pregnancy, unspecified, unspecified trimester (principal) | CPT/HCPCS: 84315 ==

== ENCOUNTER 2025-04-16 11:40 | Outpatient (CLI) | payer BC, MEDICAID, SELFPAY ==
[2025-04-16] VITALS (11 sets, daily range): BP systolic 112–124; BP diastolic 58–78; PULSE 78–99; RESP 18; BMI 36.7
== END 2025-04-16 15:00 | disposition home or self-care (01) ==
LOC: OPOB 11:44 → OBGYN 11:45
PROVIDERS: PCP Family Medicine; Visit Provider Obstetrics & Gynecology
DX: O26.899 Other specified pregnancy related conditions, unspecified trimester (principal); Z3A.00 Weeks of gestation of pregnancy not specified; R10.9 Unspecified abdominal pain
CPT/HCPCS: 59025; 99211

== ENCOUNTER 2025-04-17 20:26 | Outpatient (CLI) | payer BC, MEDICAID, SELFPAY ==
[2025-04-17 20:36] VITALS: BMI 36.8
[2025-04-17 20:39] VITALS: BP 120/80; PULSE 95
[2025-04-17 20:47] VITALS: BP 105/63; PULSE 105
[2025-04-17 21:03] VITALS: BP 107/69; PULSE 94
[2025-04-17 21:40] LABS: Nitrazine Paper, PH Negative
== END 2025-04-17 21:10 | disposition home or self-care (01) ==
LOC: OPOB 20:27 → OBGYN 20:27
PROVIDERS: PCP Family Medicine; Visit Provider Obstetrics & Gynecology
DX: O26.899 Other specified pregnancy related conditions, unspecified trimester (principal); Z3A.00 Weeks of gestation of pregnancy not specified; R10.9 Unspecified abdominal pain
CPT/HCPCS: 59025; 83986; 99211

== ENCOUNTER 2025-04-18 15:48 | Outpatient (CLI) | payer BC, MEDICAID, SELFPAY ==
[2025-04-18] VITALS (8 sets, daily range): BP systolic 129–132; BP diastolic 73–79; PULSE 92–107; RESP 17; O2SAT 97; BMI 36.8
== END 2025-04-18 16:32 | disposition home or self-care (01) ==
LOC: OPOB 15:49 → OBGYN 15:50
PROVIDERS: PCP Family Medicine; Visit Provider Obstetrics & Gynecology
DX: O26.899 Other specified pregnancy related conditions, unspecified trimester (principal); Z3A.00 Weeks of gestation of pregnancy not specified; R42 Dizziness and giddiness; R51.9 Headache, unspecified; R11.0 Nausea; H53.8 Other visual disturbances
CPT/HCPCS: 59025; 99211; J9999

== ENCOUNTER 2025-04-20 18:16 | Outpatient (CLI) | payer BC, MEDICAID, SELFPAY ==
[2025-04-20] VITALS (7 sets, daily range): BP systolic 108–131; BP diastolic 69–84; PULSE 94–99; RESP 17; O2SAT 99; BMI 36.9
== END 2025-04-20 19:46 | disposition home or self-care (01) ==
LOC: OPOB 18:17 → OBGYN 18:18
PROVIDERS: PCP Family Medicine; Visit Provider Obstetrics & Gynecology
DX: O26.899 Other specified pregnancy related conditions, unspecified trimester (principal); Z3A.00 Weeks of gestation of pregnancy not specified; R10.9 Unspecified abdominal pain
CPT/HCPCS: 59025; 99211

== ENCOUNTER → 2025-04-28 08:41 | Outpatient (BNVA) | payer BC, MEDICAID, SELFPAY | PROVIDERS: PCP Family Medicine; Visit Provider Obstetrics & Gynecology | DX: O26.893 Other specified pregnancy related conditions, third trimester (principal); Z3A.40 40 weeks gestation of pregnancy | CPT/HCPCS: 76819; 84315 ==

== ENCOUNTER 2025-04-29 04:25 | Inpatient (IN) | payer BC, MEDICAID, SELFPAY ==
[2025-04-28 20:02] VITALS: BP 111/69; PULSE 104
[2025-04-28 20:05] VITALS: RESP 18; BMI 37.7
[2025-04-28 20:57] VITALS: RESP 18
--- NOTE | 2025-04-28 21:34 | PM.OPHPUD ---
Labor & Delivery H&P Update Date of Procedure: April 28, 2025 Date H&P Performed: 04/28/25 Changes to previous documentation: Patient having regular contractions Admission Diagnosis: of 40+ weeks in labor
--- NOTE | 2025-04-28 21:37 | PM.OBGYHP ---
Providers/Chief Complaint Admitting Physician: Nanda Primary ELECTRONICS PARTS SALES REPRESENTATIVE: Nanda Primary Care Provider: Asher Ordonez DO Chief Complaint: Contractions HPI ELECTRONICS PARTS SALES REPRESENTATIVE History of Present Illness Corry Boothe is a 19 year old female seen in office today at 40+ weeks GA. Arrives complaining of cyclic pelvic pain. Denies VB LOF or decreased movement. Was scheduled for induction tomorrow. GBS neg. RH pos BG. Present Details : 1 Para: 0 Labs GBS: Negative Review of Systems General: Reports: 10 or more systems reviewed and unremarkable except in HPI and below Medications/Allergies Home Medications ?Medication ?Instructions ?Recorded ?Confirmed ?Last Taken ?Type docosahexaenoic acid 200 mg mg PO DAILY 12/10/24 04/28/25 04/01/25 History capsule ( DHA) ferrous sulfate 325 mg (65 mg 325 mg PO BID #60 tabs 01/08/25 04/28/25 03/21/25 21:00 Rx iron) tablet sertraline 50 mg tablet (Zoloft) 50 mg PO DAILY #30 tabs 03/04/25 04/28/25 03/21/25 21:00 Rx hydroxyzine HCl 25 mg tablet 25 mg PO .hs PRN itching #30 tabs 03/20/25 04/28/25 Unknown Rx metoclopramide HCl 10 mg tablet See Rx Instructions .Route 04/07/25 04/28/25 Unknown Rx .COMPLEX #120 tabs Allergies Allergy/AdvReac Type Severity Reaction Status Date / Time tioconazole (From Monistat 1 Allergy ALGY-Rash Verified 04/28/25 13:47 (tioconazole)) duloxetine AdvReac Intermediate nausea Verified 04/28/25 13:47 PFSH ELECTRONICS PARTS SALES REPRESENTATIVE PFSH: Medical History (Updated 04/28/25 @ 21:46 by Jonn Vee MD) LGSIL (low grade squamous intraepithelial dysplasia) 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 Joint pain Muscle pain Enthesitis Inflammatory arthritis PCOS (polycystic ovarian syndrome) Diagnosed in 2019 with secondary amenorrhea and lab work consistent with elevated testosterone along with increased hair growth No pertinent past medical history neghx:htn,dm,asthma, thyroid, seizures, DVT/PE PCP: none Surgical History History of lymph node excision Infected lymph node on the right side of the neck Family History Father Hypertension Hyperlipidemia Grandmother Hypertension Paternal Hyperlipidemia Paternal Diabetes Paternal Cervical cancer Maternal Grandfather Hypertension Paternal Hyperlipidemia Paternal Stroke Paternal Diabetes Paternal Denies family history of Colon cancer Ovarian cancer DVT (deep venous thrombosis) Breast cancer Pulmonary embolism Uterine cancer Social History Smoking and tobacco/nicotine status: never used tobacco/nicotine History History History 1 Term Miscarriages/Ectopic Living Children Care STEVE Calculator Estimated Delivery Date Method Current WG Current Estimate 04/24/25 Ultrasound #1 40w 4d Expected Delivery Route/Plan Expect Specific Issues/Plans LATE TO CARE- started care at 20wks PCOS- u/s dates the DEPRESSION/ANXIETY- zoloft 25mg started 24 wks ANEMIA- iron daily started at 20 wks LGSIL--- cotest at PP Vitals/I&O/Wt Last Vital Signs Pulse 104 H 04/28/25 20:02 Resp 18 04/28/25 20:57 BP 111/69 04/28/25 20:02 Weight last 48 hrs Weight 248 lb Physical Exam Narrative: 2/80/-3/vx/IM +FMs Results Labs OB ([facility]): Obstetrics US 12/10/24 Obstetrics US/Biophysical Profile Today Blood Type A Positive 12/10/24 Antibody Screen Negative 12/10/24 Hct, (36-47) 38.3 % 02/12/25 Hgb, (11.27-16.99) 12.00 g/dL 02/12/25 Rho(D) Type Rh positive 12/10/24 Plt Count, (157-399) 198 10^3/cmm 02/12/25 Hep Bs Antigen, (Nonreactive) Non-reactive 12/10/24 Hepatitis C Antibody, (Nonreactive) Non-reactive 12/10/24 Rubella IgG Antibody, (0.0-10.0) 73.7 IU/mL H 12/10/24 RPR, (Nonreactive) Nonreactive 12/10/24 HIV 1&2 Ab & HIV 1 Ag, (Non-Reactiv) Non-reactive 12/10/24 TSH, (0.27-4.20) 2.44 uIU/mL 04/22/25 Gest Glucose Tolerance, (70-139) 93 mg/dL 01/07/25 Hemoglobin A1c, (4.0-6.0) 4.7 % 12/10/24 Ser , Semi-Qnt 66883.00 mIU/mL 12/10/24 HCG, Qual, (Negative) Positive H 12/10/24 Urine Opiates Screen, (Negative) Negative ng/mL 12/10/24 Ur Barbiturates Screen, (Negative) Negative ng/mL 12/10/24 Ur Phencyclidine Scrn, (Negative) Negative ng/mL 12/10/24 Ur Amphetamines Screen, (Negative) Negative ng/mL 12/10/24 U Benzodiazepines Scrn, (Negative) Negative ng/mL 12/10/24 Urine Cocaine Screen, (Negative) Negative ng/mL 12/10/24 U Marijuana (THC) Screen, (Negative) Negative ng/mL 12/10/24 Micro Urine Specimen 12/10/24 Pap Smear Interpret See note A 01/07/25 A&P Assessment and plan 1. 40 weeks gestation of : 2. LGSIL (low grade squamous intraepithelial dysplasia): Plan: Admit to L&D monitoring Notify anesthesia if epidural requested Anticipate vag delivery NPO except ice chips IV ? D5LR at 125 cc/hr CBC, T&S, RPR See Orders PDMP PDMP Reviewed: Not Reviewed Attestations Medical Necessity Statement*: Hospitalization required for maternal and care during delivery. Coding Level of Care Code Acute Code for Chg Fwd Diagnoses 40 weeks gestation of Z3A.40 LGSIL (low grade squamous intraepithelial dysplasia)
[2025-04-28 21:42] VITALS: RESP 18
[2025-04-28 22:02] VITALS: BP 132/80; PULSE 73
[2025-04-28 23:41] VITALS: BP 111/65; PULSE 81
[2025-04-29] VITALS (88 sets, daily range): BP systolic 89–144; BP diastolic 52–90; PULSE 62–113; RESP 15–17; TEMP 36.1–36.7; O2SAT 75–99; BMI 37.7
[2025-04-29] MEDS: HYDROmorphone 0.5 MG/0.5 ML INJ 0.25 MG IVP (00:14)
[2025-04-29 00:44] LABS: Hematocrit 38.1 % (36-47); Hemoglobin 12.70 g/dL (11.27-16.99); Mean Corpuscular HGB Conc 33.3 g/dL (30-55); Mean Corpuscular Hemoglobin 27.7 pg (27-33); Mean Corpuscular Volume 83.2 fl (85-98); Nucleated Red Blood Cells % 0 %; Platelet Count 154 10^3/cmm (157-399); Red Blood Count 4.58 10^6/uL (3.85-5.65); White Blood Count 13.24 10^3/uL (3.29-11.43)
[2025-04-29] MEDS: oxytocin 30 UNIT/500 ML BAG IV (02:00)
[2025-04-29] MEDS: ROPivacaine syringe 100 MG/50 ML SYRINGE 10 MG EPIDURAL ×4 (03:19→13:51)
--- NOTE | 2025-04-29 03:26 | P.ANESASSM_ITS ---
Pre-Anesthetic Assessment Height/Weight: Height 1.73 m Weight 112.491 kg Pulse Resp BP Pulse Ox 78 18 126/74 96 04/29/25 03:23 04/28/25 21:42 04/29/25 03:23 04/29/25 03:19 Preop Diagnosis: epidural Familial anesthetic complications: none Was Beta Katherine taken within 24 hours: N/A Was Clonidine taken within 24 hours: N/A Last Intake: 18:00 Social No alcohol and No tobacco Exam alert, oriented x 3, clear to auscultation bilaterally and regular rate & rhythm Airway Cervical ROM: within normal limits Mallampati: Class II Dentition: full History/ROS No significant complaints Pulmonary None reported CV/HEM None reported None reported Hepatic None reported GI None reported Metabolic None reported Musc/skel Fibromyalgia Neuropsych Depression Anesthetic Plan ASA status: 2 Anesthesia: Regional (specify below) Medications/Allergies Home Medications ?Medication ?Instructions ?Recorded ?Confirmed ?Last Taken ?Type docosahexaenoic acid 200 mg mg PO DAILY 12/10/2404/2804/01/25 History capsule ( DHA) ferrous sulfate 325 mg (65 mg 325 mg PO BID #60 tabs 0 01/08/25 04/28/25 03/21/25 21:00 Rx iron) tablet sertraline 50 mg tablet (Zoloft) 50 mg PO DAILY #30 ta bs 03/04/25 04/28/25 03/21/25 21:00 Rx hydroxyzine HCl 25 mg tablet 25 mg PO .hs PRN itching #30 tabs 03/20/25 04/28/25 Unknown Rx metoclopramide HCl 10 mg tablet See Rx Instructions .R oute 04/07/25 04/28/25 Unknown Rx .COMPLEX #120 tabs Allergies Allergy/AdvReac Type Severity Reaction Status Date / Time tioconazole (From Monistat 1 Allergy ALGY-Rash Verified 04/28/25 13:47 (tioconazole)) duloxetine AdvReac Intermediate nausea Verified 04/28/25 13:47 Current Medications Generic Name Dose Route Start Last Admin Trade Name Freq PRN Reason Stop Dose Admin Dextrose/Lactated Ringer's 1,000 mls @ 125 mls/hr 04/29/25 00:36 04/29/25 03:04 Dextrose 5%-Lactated Ringers IV 125 mls/hr .Q8H PRN Administration labor Oxytocin 30 unit in 500 mls @ 1 mls/hr 04/29/25 01:15 04/29/25 02:30 Pitocin IV 3 milliunit/min .Q24H LORAINE 3 mls/hr Protocol Titration 1 MILLIUNIT/MIN Ropivacaine 100 mg in 50 mls @ 10 mls/hr 04/29/25 01:30 04/29/25 03:19 Naropin Syringe EPIDURAL 10 mls/hr .Q5H LORAINE Administration Sodium Chloride 1,000 mls @ 999 mls/hr 04/29/25 01:25 04/29/25 02:00 Sodium Chloride 0.9% IV 999 mls/hr .Q1H1M PRN Administration See label comments PFSH Anesthesia Medical History (Updated 04/28/25 @ 21:46 by Jonn Vee MD) LGSIL (low grade squamous intraepithelial dysplasia) 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 Joint pain Muscle pain Enthesitis Inflammatory arthritis PCOS (polycystic ovarian syndrome) Diagnosed in 2019 with secondary amenorrhea and lab work consistent with elevated testosterone along with increased hair growth No pertinent past medical history neghx:htn,dm,asthma, thyroid, seizures, DVT/PE PCP: none Surgical History History of lymph node excision Infected lymph node on the right side of the neck Family History Father Hypertension Hyperlipidemia Grandmother Hypertension Paternal Hyperlipidemia Paternal Diabetes Paternal Cervical cancer Maternal Grandfather Hypertension Paternal Hyperlipidemia Paternal Stroke Paternal Diabetes Paternal Denies family history of Colon cancer Ovarian cancer DVT (deep venous thrombosis) Breast cancer Pulmonary embolism Uterine cancer Social History Smoking and tobacco/nicotine status: never used tobacco/nicotine Female Reproductive History : 1 Spontaneous abortions: No Data Anesthesia 04/28/25 23:55 Short CBC 04/28/25 Range/Units 23:55 WBC 13.24 H (3.29-11.43) 10^3/uL Hgb 12.70 (11.27-16.99) g/dL Hct 38.1 (36-47) % MCV 83.2 L (85-98) fl Plt Count 154 L (157-399) 10^3/cmm Neut % (Auto) 71.8 % Neut # (Auto) 9.53 H (1.8-7.7) 10^3/uL Blood Bank 04/28/25 23:55 Blood Type A Positive Rho(D) Type Rh positive Antibody Screen Negative Anesthesia Procedures Epidural Time Out Performed: Yes Consents Signed: Procedure Consent Consent: from patient, risks and benefits reviewed and patient agrees to proceed Lumbar Level: L3-L4 Epidural position: sitting Epidural procedure: sterile prep of area, 1% lidocaine to numb the area, 18 g needle, negative for paresthesia passed, neg for paresthesia, test dose given, 1.5% xylocaine 1:200k epi, 0.2% Ropivacaine bolus ml, placed PCEA, no systemic response, sterile dressing applied, L.U.D. no apparent complications and 0.2% Ropiavacaine @ mls/hr Additional Comments: inital tuouy puncture caused heme, needle removed and flushed and redirected, test dose caused increase of HR from 86 to 115 briefly after 2ml, catheter flushed and remaining 3mL given HR remained in the 90s no other signs or symptoms of intravascular placement. MARINO at 8cm, placed on PCEA VSS.
--- NOTE | 2025-04-29 15:45 | PM.DELIVERY ---
Delivery Note: Date of delivery: April 29, 2025 Pre-delivery diagnoses: 40 w 4 d active labor pitocin augmentation of labor Post-delivery diagnoses: 40 w 4 d active labor pitocin augmentation of labor vaginal delivery repair of second-degree perineal laceration Procedure: pitocin augmentation of labor vaginal delivery repair of second-degree perineal laceration Op report anesthesia: Epidural Delivering Physician: Zurdo Saunders MD Estimated blood loss (mL): 300 Findings: , vigorous female infant, en caul 1+ meconium-stained amniotic fluid Cord gases and blood obtained Second-degree perineal laceration repaired EBL: 300 cc No complications Pre-Delivery Course: normal labor course fetus reassuring throughout Delivery: vaginal Post-Delivery Status: good History History History 1 Term Miscarriages/Ectopic Living Children A&P Assessment and plan 1. Vaginal delivery: PDMP PDMP Reviewed: Not Reviewed Coding Level of Care Code Acute Code for Chg Fwd Diagnoses Vaginal delivery O80
--- NOTE | 2025-04-29 17:22 | PC.NURSE ---
Pt up to bathroom with minimal assistance. Void, landon care discussed and performed by pt. Pad and gown changed. Pt then back to bed without assistance.
[2025-04-29] MEDS: benzocaine-menthol 78 gm Canister 1 SPRAY TOPICAL (17:23)
--- NOTE | 2025-04-29 18:51 | PC.NURSE ---
ambulated to OB9. oriented to room/call light. proud parent pack and feeding log discussed.
[2025-04-30 04:13] LABS: Hematocrit 35.3 % (36-47); Hemoglobin 11.80 g/dL (11.27-16.99); Mean Corpuscular HGB Conc 33.4 g/dL (30-55); Mean Corpuscular Hemoglobin 28.0 pg (27-33); Mean Corpuscular Volume 83.8 fl (85-98); Platelet Count 141 10^3/cmm (157-399); Red Blood Count 4.21 10^6/uL (3.85-5.65); White Blood Count 13.82 10^3/uL (3.29-11.43)
[2025-04-30 04:21] VITALS: BP 102/68; PULSE 80; RESP 17; TEMP 36.7; O2SAT 96
[2025-04-30] MEDS: PRENATAL VIT NO.130/IRON/FOLIC 1 EACH TABLET PO (08:28)
[2025-04-30 10:27] VITALS: BP 109/72; PULSE 88; RESP 16; TEMP 36.5; O2SAT 98
--- NOTE | 2025-04-30 13:59 | ANE.PACU2 ---
Inpatient post-anesthesia follow up: Airway intact: Yes Vital signs: Temperature 98.1 F Pulse Rate 86 Respiratory Rate 17 Blood Pressure 112/76 Pulse Oximetry 99 Oxygen Delivery Me thod Room Air Oxygen Flow Rate Fraction of Inspir ed Oxygen Hydration adequate: Yes Nausea and vomiting: No Pain level: 2 Mental status: Baseline Epidural Start/End: Epidural Start Date: 04/29/25 Epidural Start Time: 02:52 Epidural End Date: 04/29/25 Epidural End Time: 17:31
--- NOTE | 2025-04-30 14:10 | P.PN_ITS ---
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 fundus firm Ext: no edema; nontender PP Hgb 11.8 Urinary Catheter Management: Bradford: Cath Placed During This Visit: yes, but has since been removed by the nurse Reason for Continuing Indwelling Catheter: Decision to DC Catheter Urinary Catheter Date of Insertion: 04/29/25 Urinary Catheter Time of Insertion: 04:20 Date Urinary Catheter Removed: 04/29/25 Time Urinary Catheter Discontinued: 15:10 Data 04/30/25 03:47 A&P Assessment and plan 1. Vaginal delivery: PPD #1 doing well discharge to home today instructions and precautions given call/return if fever, chills, headache, blurry vision, nausea, vomiting, abdominal pain; vaginal bleeding or discharge; shortness of breath, chest pain, leg pains or swelling; inability to void, perineal pain or swelling; feelings of depression or mood changes; thoughts of suicide or harming others; inability to care for baby. f/u in 6 weeks or PRN PDMP PDMP Reviewed: Not Reviewed Attestations 2 Medical Necessity Statement*: patient s/p vaginal delivery, plan discharge to home today Coding Level of Care Code Acute Code for Chg Fwd Diagnoses Vaginal delivery O80
--- NOTE | 2025-04-30 14:15 | PM.OBGYDC ---
Discharge Providers [employer] Date of Admission: 04/29/25 04:25 Date of Discharge: 04/30/25 Attending Provider at Admission: Zurdo Saunders MD Attending Provider at Discharge: Zurdo Saunders MD Consults: none Primary [employer]: Zurdo Saunders MD Primary Care Provider: Asher Ordonez DO Diagnoses at Discharge Discharge Diagnosis 1. Vaginal delivery: Details from hospital stay: 19 y.o. G1 EDC April 24, 2025 presented with painful uterine contractions patient progressed to complete dilatation fetus was reassuring throughout She delivered vaginally without any complications had second-degree perineal laceration that was repaired patient did well and was discharged to home on the first day Reason for Visit Reason for Visit: Contractions Brief History: 19 y.o. G1 EDC April 24, 2025 presented with painful uterine contractions Hospital Course Hospital Course 19 y.o. G1 EDC April 24, 2025 presented with painful uterine contractions patient progressed to complete dilatation fetus was reassuring throughout She delivered vaginally without any complications had second-degree perineal laceration that was repaired patient did well and was discharged to home on the first day Information Peripartum Data: Infant Delivery Method: Vaginal Laceration description: Perineal - 2nd Degree Episiotomy description: None complications: none Physical Exam Narrative: afebrile, VS normal comfortable, awake, alert Abd: soft, nontender. fundus firm Ext: no edema; nontender PP Hgb 11.8 Urinary Catheter Management: [place]: Cath Placed During This Visit: yes, but has since been removed by the nurse Reason for Continuing Indwelling Catheter: Decision to DC Catheter Urinary Catheter Date of Insertion: 04/29/25 Urinary Catheter Time of Insertion: 04:20 Date Urinary Catheter Removed: 04/29/25 Time Urinary Catheter Discontinued: 15:10 History History History 1 Term Miscarriages/Ectopic Living Children Discharge Data Studies Completed and Pending Laboratory Results WBC 13.82 10^3/uL (3.29-11.43) H 04/30/25 03:47 RBC 4.21 10^6/uL (3.85-5.65) 04/30/25 03:47 Hgb 11.80 g/dL (11.27-16.99) 04/30/25 03:47 Hct 35.3 % (36-47) L 04/30/25 03:47 MCV 83.8 fl (85-98) L 04/30/25 03:47 MCH 28.0 pg (27-33) 04/30/25 03:47 MCHC 33.4 g/dL (30-55) 04/30/25 03:47 RDW 14.6 % (12.1-15.1) 04/30/25 03:47 Plt Count 141 10^3/cmm (157-399) L 04/30/25 03:47 MPV 12.6 fL (7.4-10.4) H 04/30/25 03:47 Neut % (Auto) 71.8 % 04/28/25 23:55 Lymph % (Auto) 20.5 % 04/28/25 23:55 [place] % (Auto) 6.5 % 04/28/25 23:55 Eos % (Auto) 0.5 % 04/28/25 23:55 Baso % (Auto) 0.2 % 04/28/25 23:55 Neut # (Auto) 9.53 10^3/uL (1.8-7.7) H 04/28/25 23:55 Lymph # (Auto) 2.7 10^3/uL (0.8-4.8) 04/28/25 23:55 [place] # (Auto) 0.9 10^3/uL (0.2-0.9) 04/28/25 23:55 Eos # (Auto) 0.1 10^3/uL (0.0-0.8) 04/28/25 23:55 Baso # (Auto) 0.0 10^3/uL (0.0-0.1) 04/28/25 23:55 Nucleated RBC % (auto) 0 % 04/28/25 23:55 Nucleated RBCs # 0.0 /100WBC 04/28/25 23:55 Blood Type A Positive 04/28/25 23:55 Rho(D) Type Rh positive 04/28/25 23:55 Antibody Screen Negative 04/28/25 23:55 Procedures Performed vaginal delivery repair of second-degree perineal laceration Vitals Last Vital Signs Temp 98.1 F 04/30/25 19:30 Pulse 86 04/30/25 19:30 Resp 17 04/30/25 19:30 BP 112/76 04/30/25 19:30 Pulse Ox 99 04/30/25 19:30 O2 Del Method Room Air 04/30/25 19:00 Results Labs OB ([facility]): Obstetrics US 12/10/24 Obstetrics US/Biophysical Profile 04/28/25 Blood Type A Positive 04/28/25 Antibody Screen Negative 04/28/25 Hct, (36-47) 35.3 % L 04/30/25 Hgb, (11.27-16.99) 11.80 g/dL 04/30/25 Rho(D) Type Rh positive 04/28/25 Plt Count, (157-399) 141 10^3/cmm L 04/30/25 Hep Bs Antigen, (Nonreactive) Non-reactive 12/10/24 Hepatitis C Antibody, (Nonreactive) Non-reactive 12/10/24 Rubella IgG Antibody, (0.0-10.0) 73.7 IU/mL H 12/10/24 RPR, (Nonreactive) Nonreactive 12/10/24 HIV 1&2 Ab & HIV 1 Ag, (Non-Reactiv) Non-reactive 12/10/24 TSH, (0.27-4.20) 2.44 uIU/mL 01/07/25 Gest Glucose Tolerance, (70-139) 93 mg/dL 01/07/25 Hemoglobin A1c, (4.0-6.0) 4.7 % 12/10/24 Ser , Semi-Qnt 40094.00 mIU/mL 12/10/24 HCG, Qual, (Negative) Positive H 12/10/24 Urine Opiates Screen, (Negative) Negative ng/mL 12/10/24 Ur Barbiturates Screen, (Negative) Negative ng/mL 12/10/24 Ur Phencyclidine Scrn, (Negative) Negative ng/mL 12/10/24 Ur Amphetamines Screen, (Negative) Negative ng/mL 12/10/24 U Benzodiazepines Scrn, (Negative) Negative ng/mL 12/10/24 Urine Cocaine Screen, (Negative) Negative ng/mL 12/10/24 U Marijuana (THC) Screen, (Negative) Negative ng/mL 12/10/24 Micro Urine Specimen 12/10/24 Pap Smear Interpret See note A 01/07/25 Discharge Plan Discharge Patient Disposition: Home Condition: Stable Prescriptions: Continued DHA 200 mg capsule PO DAILY sertraline [Zoloft] 50 mg tablet 50 mg PO DAILY Qty: 30 3RF ferrous sulfate 325 mg (65 mg iron) tablet 325 mg PO BID Qty: 60 4RF hydroxyzine HCl 25 mg tablet 25 mg PO .hs PRN (Reason: itching) Qty: 30 0RF metoclopramide HCl 10 mg tablet See Rx Instructions .ROUTE .COMPLEX Qty: 120 0RF Dose Instruction: TAKE 1 TABLET BY MOUTH EVERY 6 HOURS NEEDED FOR NAUSEA AND VOMITING Rx Instructions: TAKE 1 TABLET BY MOUTH EVERY 6 HOURS NEEDED FOR NAUSEA AND VOMITING Discharge Order = DC NOW: Discharge Order (Routine); Ordered 04/30/25 Ordered By: Zurdo Saunders Referrals: Maggi Ocampo NP [Nurse Practitioner, [employer] [facility] [facility]] - 06/11/25 10:45 am Discharge Diet: Usual diet Discharge Activity: Increase activity as tolerated Patient Instructions: Depression (DC), Opioid Safety (DC), Preeclampsia and Eclampsia After Delivery (GEN), Hemorrhage (DC), OB Discharge Report, OB Food/Drug Interaction Guide, Opioid Safety, OB Home Care, OB Vaginal Deliveries - [facility], Patient Portal & Manuel Instructions, Abnormal Bleeding Discharge Attestations [employer] Time Spent in Discharge Care*: less than 30 min Coding Level of Care Code Acute Code for Chg Fwd Diagnoses Vaginal delivery O80
[2025-04-30 19:00] VITALS: BP 112/76; PULSE 86; RESP 17; TEMP 36.7; O2SAT 99
[2025-04-30 19:30] VITALS: BP 112/76; PULSE 86; RESP 17; TEMP 36.7; O2SAT 99
== END 2025-04-30 19:33 | disposition home or self-care (01) | DRG 807 ==
LOC: OBGYN 07:14
PROVIDERS: Obstetrics & Gynecology; Admitting Provider Obstetrics & Gynecology; PCP Family Medicine; Visit Provider Obstetrics & Gynecology
DX: O48.0 Post-term pregnancy (principal); Z37.0 Single live birth; Z3A.40 40 weeks gestation of pregnancy; O99.344 Other mental disorders complicating childbirth; F32.A Depression, unspecified; F41.9 Anxiety disorder, unspecified; O99.02 Anemia complicating childbirth; D64.9 Anemia, unspecified; O99.284 Endocrine, nutritional and metabolic diseases complicating childbirth; E28.2 Polycystic ovarian syndrome; O70.1 Second degree perineal laceration during delivery; O77.0 Labor and delivery complicated by meconium in amniotic fluid; R87.622 Low grade squamous intraepithelial lesion on cytologic smear of vagina (LGSIL); O99.892 Other specified diseases and conditions complicating childbirth; M79.7 Fibromyalgia
CPT/HCPCS: 12345; 36415; 51702; 59025; 59409; 85025; 85027; 86850; 86900; 96374; 99211; J1171; J2590; J2795; J7030; J7121; J9999

== ENCOUNTER 2025-06-18 14:33 | Emergency (ER) | payer BC, MEDICAID, SELFPAY ==
[2025-06-18 14:38] VITALS: BP 119/85; PULSE 98; TEMP 36.8; O2SAT 98
--- NOTE | 2025-06-18 14:38 | XR_ITS ---
WS: [id number] XR chest 1V portable [id number] REASON FOR EXAM: cp FINDINGS: The heart and the mediastinum are within normal limits. Calcified granulomatous disease bilaterally. No acute pulmonary parenchymal or pleural abnormality. The bony thorax is intact without significant focal abnormality. XR/XR chest 1V portable [id number] IMPRESSION: No acute chest abnormality.
--- NOTE | 2025-06-18 14:42 | ECG_ITS ---
[employer] Test Date: 2025-06-18 Pat Name: Corry Boohte Department: Room: Gender: Female Comptometer Operator: : 2005 Requested By: Leidy Olivares Order Number: [id number] Abi MD: Nick Fuller M.D. Measurements Intervals [place] Rate: 107 P: 59 [place]: 145 QRS: 64 QRSD: 78 T: -4 QT: 332 QTc: 445 Interpretive Statements SINUS TACHYCARDIA NONSPECIFIC T-WAVE ABNORMALITY Compared to ECG 04/19/2022 22:47:08 Sinus rhythm no longer present T-wave abnormality still present Electronically Signed On 06-19-2025 08:36:24 CDT by Nick Fuller M.D. [email or web address]
--- NOTE | 2025-06-18 15:36 | ED_ITS ---
HPI - SOB/Dyspnea 2 General: Chief Complaint: Shortness of Breath/Dyspnea Stated Complaint: pressure in chest/SOB/N Time Seen by Provider: 06/18/25 15:03 History of Present Illness: HPI Narrative: 19-year-old female presents emergency ro om complaining of pressure in the chest short of breath began this morning she is no history of any arrhythmias. She is about 1 month vaginal delivery. She has no history of any asthma she is not on any inhaled medications she denies fever sweats chills or productive cough. Pain is slightly worse when she takes a deep breath most of her pain is epigastric radiating up into the lower substernal area. Associated symptoms: Deny abdominal pain, chest pain or fever(s) Related Data Home Medications ?Medication ?Instructions ?Recorded ?Confirmed docosahexaenoic acid 200 mg 200 mg PO DAILY 12/10/24 1 capsule ( DHA) etonogestrel 0.12 mg-ethinyl 1 vag ring vaginal .Q28D 06/18/25 06/18/25 estradiol 0.015 mg/24 hr vaginal ring (NuvaRing) Previous Rx's ?Medication ?Instructions ?Recorded sertraline 50 mg tablet (Zoloft) 50 mg PO DAILY #30 ta bs 03/04/25 albuterol sulfate 90 mcg/actuation 2 inh inhalation Q4 H PRN shortness 06/18/25 aerosol inhaler of breath or wheezing #18 gr ams Allergies Allergy/AdvReac Type Severity Reaction Status Date / Time tioconazole (From Monistat 1 Allergy ALGY-Rash Verified 06/18/25 14:47 (tioconazole)) duloxetine AdvReac Intermediate nausea Verified 06/18/25 14:47 Review of Systems 2 Const: Denies: fever(s) or chills Card: Denies: chest pain Resp: Denies: dyspnea GI: Denies: abdominal pain : Denies: dysuria, urinary frequency or urinary urgency Musc: Denies: neck pain or back pain Skin/Breast: Denies: rash PFSH ED 2 PFSH: Medical History 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 HELPER antibody Joint pain Muscle pain Enthesitis Inflammatory arthritis PCOS (polycystic ovarian syndrome) Diagnosed in 2019 with secondary amenorrhea and lab work consistent with elevated testosterone along with increased hair growth No pertinent past medical history neghx:htn,dm,asthma, thyroid, seizures, DVT/PE PCP: none Surgical History History of lymph node excision Infected lymph node on the right side of the neck Family History Father Hypertension Hyperlipidemia Grandmother Hypertension Paternal Hyperlipidemia Paternal Diabetes Paternal Cervical cancer Maternal Grandfather Hypertension Paternal Hyperlipidemia Paternal Stroke Paternal Diabetes Paternal Denies family history of Colon cancer Ovarian cancer DVT (deep venous thrombosis) Breast cancer Pulmonary embolism Uterine cancer Social History Smoking and tobacco/nicotine status: never used tobacco/nicotine Female Reproductive History: Spontaneous abortions: No Physical Exam 2 Const: COMMON NORMALS: no acute distress GENERAL APPEARANCE: cooperative and comfortable ORIENTATION/CONSCIOUSNESS: Yes awake, Yes oriented to person, Yes oriented to place and Yes oriented to time HENMT: COMMON NORMALS: normocephalic, atraumatic and hearing grossly normal bilaterally HEAD & SCALP: normocephalic and atraumatic Resp: COMMON NORMALS: normal respiratory effort, No retractions, No use of accessory muscles and clear to auscultation bilaterally AUSCULTATION: clear to auscultation bilaterally Cardio: COMMON NORMALS: regular rate, regular rhythm and No murmurs present (Cardio) RATE: regular rate RHYTHM: regular rhythm GI: COMMON NORMALS: Soft to palpation and No hepatosplenomegaly present A USCULTATION: Yes normoactive bowel sounds PALPATION: Yes Soft to palpation, No Tenderness to palpation present (GI), No Guarding due to palpation present (GI) and Yes No hepatosplenomegaly present Extremity: COMMON NORMALS: normal to inspection, capillary refill normal, no clubbing, cyanosis or edema, no calf tenderness and no pedal edema Neuro: SENSORIUM/ORIENTATION: Yes oriented to person, Yes oriented to place and Yes oriented to time Skin: COMMON NORMALS: no rashes or lesions noted GENERAL SKIN EXAM: no rashes or lesions noted Course 2 Vital Signs: Vital signs: Vital Signs Temperature 98.2 F 06/18/25 14:38 Pulse Rate 98 06/18/25 14:38 Blood Pressure 119/85 10/01/25 14:38 Pulse Oximetry 98 06/18/25 14:38 Oxygen Delivery Me thod Room Air 06/18/25 14:38 MDM - SOB/Dyspnea Medical Decision Making No hypoxia. Oxygen saturation remained normal on room air D-dimer undetectable. EKG did not show any acute changes. Patient has reproducible pain with deep inspiration. Chest x-ray negative for pneumonia pneumothorax widening mediastinum. Given undetectable D-dimer PE seems unlikely along with nature of symptoms and the fact that the patient's does not have any hypoxia. Pain appears more pleuritic in nature. Discharge home have her follow-up with primary care doctor return if she has further problems. Medical Records I reviewed the patient's medical records. Lab Data I reviewed the patient's lab results. 06/18/25 15:27 06/18/25 15:27 Labs/Radiology: Radiology Impressions Chest X-Ray 06/18/25 14:38 IMPRESSION: No acute chest abnormality. Laboratory Results WBC 8.92 10^3/uL (3.29-11.43) 06/18/25 15:27 RBC 4.80 10^6/uL (3.85-5.65) 06/18/25 15:27 Hgb 13.30 g/dL (11.27-16.99) 06/18/25 15:27 Hct 39.7 % (36-47) 06/18/25 15:27 MCV 82.7 fl (85-98) L 06/18/25 15:27 MCH 27.7 pg (27-33) 06/18/25 15:27 MCHC 33.5 g/dL (30-55) 06/18/25 15:27 RDW 12.6 % (12.1-15.1) 06/18/25 15:27 Plt Count 242 10^3/cmm (157-399) 06/18/25 15:27 MPV 10.8 fL (7.4-10.4) H 06/18/25 15:27 Neut % (Auto) 59.1 % 06/18/25 15:27 Lymph % (Auto) 32.6 % 06/18/25 15:27 [place] % (Auto) 6.5 % 06/18/25 15:27 Eos % (Auto) 1.1 % 06/18/25 15:27 Baso % (Auto) 0.3 % 06/18/25 15:27 Neut # (Auto) 5.26 10^3/uL (1.8-7.7) 06/18/25 15:27 Lymph # (Auto) 2.9 10^3/uL (0.8-4.8) 06/18/25 15:27 [place] # (Auto) 0.6 10^3/uL (0.2-0.9) 06/18/25 15: Eos # (Auto) 0.1 10^3/uL (0.0-0.8) 06/18/25 15:27 Baso # (Auto) 0.0 10^3/uL (0.0-0.1) 06/18/25 15: Nucleated RBC % (auto) 0 % 06/18/25 15: Nucleated RBCs # 0.0 /100WBC 06/18/25 15: PT 12.80 SECONDS (12.1-14.9) 06/18/25 15: INR 0.90 (0.8-1.2) 06/18/25 15: D-Dimer <= 0.27 ug/mLFEU (0-0.59) 06/18/25 15:27 Sodium 140 mmol/L (136-145) 06/18/25 15: Potassium 3.7 mmol/L (3.5-5.1) 06/18/25 15: Chloride 102 mmol/L (98-107) 06/18/25 15: Carbon Dioxide 27 mmol/L (22-29) 06/18/25 15: Anion Gap 14.7 (5-19) 06/18/25 15:27 BUN 9 mg/dL (6-20) 06/18/25 15:27 Creatinine 0.7 mg/dL (0.5-0.9) 06/18/25 15: GFR Calculation 105.6 mL/min (90-130) 06/18/25 15: Glucose 106 mg/dL (65-115) 06/18/25 15: Calculated Osmolality 289 mOsm/kg (285-295) 06/18/25 15: Calcium 9.6 mg/dL (8.5-10.5) 06/18/25 15:27 Total Bilirubin 0.3 mg/dL (0.15-1.2) 06/18/25 15:27 AST 18 U/L (0-32) 06/18/25 15:27 ALT 27 U/L (0-33) 06/18/25 15:27 Alkaline Phosphatase 87 U/L (35-105) 06/18/25 15:27 Troponin T Baseline < 6 ng/L (0-10) 06/18/25 15:27 Total Protein 6.9 g/dL (6.6-8.7) 06/18/25 15:27 Albumin 4.5 g/dL (3.5-5.2) 06/18/25 15:27 Globulin 2.4 g/dL (1.3-4.6) 06/18/25 15:27 All radiology interpretation(s) finalized by discharge EKG Data EKG 1: Interpretation: 06/18/2025 1442 sinus tachycardia rate of 107 MA interval 145 QTc 445. No acute changes. Compared to EKG 04/19/2022 T wave inversion present in 04/2022 EKG still present today EKG 2: Interpretation: 06/18/2025 1633 sinus rhythm rate of 69 MA interval 171 QTc 417[address] No acute ST elevation. T wave abnormality present previously in lead III now normalized and is upright. Compared to EKG earlier same day. Discharge Plan Discharge Patient Disposition: Home Clinical Impression: Dyspnea Condition: Stable Prescriptions: New albuterol sulfate 90 mcg/actuation HFA aerosol inhaler 2 inh INHALATION Q4H PRN (Reason: shortness of breath or wheezing) Qty: 18 0RF No Action DHA 200 mg capsule 200 mg PO DAILY sertraline [Zoloft] 50 mg tablet 50 mg PO DAILY Qty: 30 3RF etonogestrel-ethinyl estradiol [NuvaRing] 0.12-0.015 mg/24 hr ring 1 vag ring vaginal .Q28D Discharge Orders: Discharge ED (Routine); Ordered 06/18/25 Ordered By: Dave Salinas Referrals: Asher Ordonez DO [Primary Care Provider, Family Practice] Discharge Diet: Usual diet Discharge Activity: Resume usual activity Patient Instructions: Opioid Safety, Pain Management, Patient Portal & Manuel Instructions Activity Restrictions/Additional Instructions: Thank you for choosing [facility] for your healthcare needs today. It is very important that you follow up as instructed or that you return to the Emergency Department should you have concerns or if your condition changes or worsens in any way. Emergency department visits are focused on emergent conditions, in some cases you may require further evaluation on an outpatient basis. You were seen in the emergency room with complaints of shortness of breath evaluation emergency room your EKG cardiac enzymes and chest x-ray were all normal. Your vital signs remained normal your exam was also unremarkable. Suspect this may be related to your use of a vape product. We gave you albuterol to use as needed if your symptoms worsen or persist follow-up with your primary care doctor. (Please note that included in your discharge packet is information concerning opioid safety and pain management. This information is given to all patients were discharged from the ER regardless of their discharge diagnosis or the medicines they usually take or are prescribed.) Print Language: Belarusian Coding Level of Care Code ED Right Of Way Maintenance Supervisor for Shyam Daley
[2025-06-18 15:39] LABS: Hematocrit 39.7 % (36-47); Hemoglobin 13.30 g/dL (11.27-16.99); Mean Corpuscular HGB Conc 33.5 g/dL (30-55); Mean Corpuscular Hemoglobin 27.7 pg (27-33); Mean Corpuscular Volume 82.7 fl (85-98); Nucleated Red Blood Cells % 0 %; Platelet Count 242 10^3/cmm (157-399); Red Blood Count 4.80 10^6/uL (3.85-5.65); White Blood Count 8.92 10^3/uL (3.29-11.43)
[2025-06-18 15:52] LABS: INR 0.90 (0.8-1.2); Prothrombin Time 12.80 SECONDS (12.1-14.9)
[2025-06-18 15:57] LABS: Troponin(5th) Baseline < 6 ng/L (0-10)
[2025-06-18 16:00] LABS: Alanine Aminotransferase 27 U/L (0-33); Albumin Level 4.5 g/dL (3.5-5.2); Alkaline Phosphatase 87 U/L (35-105); Anion Gap 14.7 (5-19); Aspartate Amino Transferase 18 U/L (0-32); Blood Urea Nitrogen 9 mg/dL (6-20); Calcium 9.6 mg/dL (8.5-10.5); Carbon Dioxide 27 mmol/L (22-29); Chloride 102 mmol/L (98-107); Creatinine Clr Calc Pharmacy 157.0554; Globulin 2.4 g/dL (1.3-4.6); Glucose 106 mg/dL (65-115); Osmolality Calculated 289 mOsm/kg (285-295); Potassium 3.7 mmol/L (3.5-5.1); Sodium 140 mmol/L (136-145); Total Protein 6.9 g/dL (6.6-8.7)
--- NOTE | 2025-06-18 16:59 | ECG_ITS ---
[employer] Test Date: 2025-06-18 Pat Name: Corry Boothe Department: Room: Gender: Female Brim Stitcher: : 2005 Requested By: Leidy Olivares Order Number: [id number] Abi MD: Nick Fuller M.D. Measurements Intervals [place] Rate: 69 P: 54 [place]: 171 QRS: 59 QRSD: 84 T: 33 QT: 389 QTc: 417 Interpretive Statements SINUS RHYTHM Compared to ECG 06/18/2025 14:42:23 Sinus tachycardia no longer present T-wave abnormality no longer present Electronically Signed On 06-19-2025 08:53:56 CDT by Nick Fuller M.D. [email or web address]
== END 2025-06-18 17:04 | disposition home or self-care (01) ==
PROVIDERS: Emergency Medicine; Emergency Provider Family Medicine; PCP Family Medicine
DX: R06.00 Dyspnea, unspecified (principal)
CPT/HCPCS: 36415; 71045; 80053; 84484; 85025; 85378; 85610; 93005; 99285

== ENCOUNTER → 2025-09-02 14:54 | Outpatient (BNVA) | payer BC, MEDICAID, SELFPAY | PROVIDERS: PCP Family Medicine | DX: R30.0 Dysuria (principal); R39.89 Other symptoms and signs involving the genitourinary system | CPT/HCPCS: 81000 ==